=== PATIENT | male | born 1985 | race Hispanic/Latino ===

== ENCOUNTER 2018-09-26 14:45 | Inpatient (IN) | payer SELFPAY ==
[2018-09-26] MEDS ORDERED: Lorazepam 2 MG/ML VIAL ONE ×3 (15:51→21:49)
[2018-09-26] MEDS ORDERED: Multivitamins, Adult 10 ML, Thiamine HCl 100 MG, Folic Acid 1 MG in Dextrose 5 %-0.45 %... IV ONE (16:00)
[2018-09-26] MEDS ORDERED: chlordiazePOXIDE HCl 25 MG CAP ONE (16:17)
[2018-09-26 16:24] LABS: #Eosinphils 0.1 thou/uL (0.0-0.7); #Monocytes 0.6 thou/uL (0.11-0.59); #Neutrophils 13.4 thou/uL (1.40-6.50); %Basophils 0.2 % (0.0-1.0); %Eosinophils 0.5 % (0.0-10.0); %Lymphocytes 12.5 % (21.0-51.0); %Monocytes 3.6 % (0.0-10.0); %Neutrophils 83.1 % (42.0-75.0); Hemoglobin 14.7 g/dL (14.0-18.0); Mean Corpuscular HGB CONC 35.2 g/dL (32.0-36.0); Mean Corpuscular Hemoglobin 30.7 pg (27.0-31.0); Mean Corpuscular Volume 87.3 fL (78.0-98.0); Mean Platelet Volume 8.3 fL (7.4-10.4); Platelet Count 327 thou/uL (130-400); Red Blood Cell (RBC) Count 4.78 mill/uL (4.70-6.10); White Blood Cell (WBC) Count 16.2 thou/uL (4.8-10.8)
[2018-09-26 16:27] LABS: Bilirubin Negative (Negative); Blood, Urine Small (Negative); Clarity CLEAR (Clear); Glucose, Urine (Dipstick) Negative (Negative); Leukocyte Negative (Negative); Nitrite Negative (Negative); Protein, Urine (Dipstick) 100 mg/dL (Neg-Trace); Specific Gravity, Urine 1.013 (1.002-1.036); Urobilinogen 0.2 mg/dL (0.2-1.0); pH, Urine 6.5 (5.0-9.0)
[2018-09-26 16:30] LABS: Bacteria/HPF None Seen HPF (None Seen); Hyaline Casts/LPF 4-6 HYALINE CAST LPF (0-3 Hyaline); Pathc Cast-AUWi Flag 1.01 (0-2.49); RBC/HPF 0-3 HPF (0-3); Squamous Epithelial 0-3 HPF (0-3); WBC/HPF 0-3 HPF (0-3)
[2018-09-26 16:38] LABS: Amphetamine Not Detected (NotDetected); Barbiturates Screen Not Detected (NotDetected); Benzodiazepine Screen Detected (NotDetected); Cocaine Metabolite Screen Not Detected (NotDetected); Medtox Control Line Valid? VALID (VALID); Medtox Reader # READER 4; Methadone Not Detected (NotDetected); Methamphetamine Not Detected (NotDetected); Opiate Screen Not Detected (NotDetected); Oxycodone Screen Not Detected (NotDetected); Phencyclidine (PCP) Not Detected (NotDetected); THC/Cannabinoid Screen Not Detected (NotDetected); Tricyclic Screen Not Detected (NotDetected)
[2018-09-26 16:48] LABS: ALT (SGPT) 35 U/L (8-55); AST (SGOT) 26 U/L (5-34); Albumin 4.4 g/dL (3.5-5.0); Alkaline Phosphatase 85 U/L (40-150); Anion Gap 14 mmol/L (10-20); BUN (Urea Nitrogen) 8 mg/dL (8.9-20.6); Bilirubin, Total 0.4 mg/dL (0.2-1.2); Calc. Creatinine Clearance 0 mL/min (70-130); Calcium 9.6 mg/dL (7.8-10.44); Carbon Dioxide 23 mmol/L (22-29); Chloride 104 mmol/L (98-107); Estimated GFR-MDRD Greater than 90; Globulin 3.7 g/dL (2.4-3.5); Glucose 120 mg/dL (70-105); Magnesium 2.1 mg/dL (1.6-2.6); Potassium 3.9 mmol/L (3.5-5.1); Protein, Total 8.1 g/dL (6.0-8.3); Sodium 137 mmol/L (136-145)
--- NOTE | 2018-09-26 17:36 | CT ---
NONCONTRAST HEAD CT 09/26/18 HISTORY: Seizure-like activity. COMPARISON: None. FINDINGS: No parenchymal hemorrhage. No extra-axial hematoma. No midline shift. Basilar cisterns are patent. b rain volume, age appropriate. Cortical reyez-white matter differentiation is preserved. No evidence of hydrocephalus. Calvarium is intact. Adequate aeration of the mastoid air cells. Partial opacification of the visuali zed left maxillary sinus. IMPRESSION: No acute intracranial process. If this is the patient's first known seizure, nonemergent MRI is recom mended. POS: [facility]
--- NOTE | 2018-09-26 19:52 | PDOC.FPRHP ---
- History of Present Illness Chief Complaint: seizures History of Present Illness: 32 yo M with PMH of seizure 2/2 alcohol withdrawal in 2010 presents for seizure at 2:30 PM today. He reports he was feeling sleepy while watching TV on his bed , and woke up in the ambulance. His brother heard a loud crash and found him on the floor seizing for about 3-4 minutes. He had hit his head on the wall. After the seizure the brother reported he seemed to not be breathing right away and his face turned blue. They sat him up, he began breathing normally, and he was confused for about 20 minutes. He reports biting his tongue, but no incontinence. He was sent via ambulance to the ED. Pt reports drinking about 12 beers daily and 18 beers on weekends plus shots of liquor. Last drink he reports as Aug 25th around 6 PM. He reports smoking a few cigarettes on weekends, but not daily. He denies illicit drug use, but via his chart from 2010 his ex- reported he has a history of using cocaine. He reports having anxiety and using occasional clonazepam. He had been feeling jittery and sweaty over last few days. Denied auditory or visual hallucinations. In the ED, he received ativan and librium, as well as a banana bag. CT head was normal, EKG showed sinus tachycardia up to 130s which improved to 110s with second dose ativan. Otherwise his vitals were stable. - Allergies/Adverse Reactions Allergies Allergy/AdvReac Type Severity Reaction Status Date / Time No Known Allergies Allergy Unverified 09/26/18 15:51 - Home Medications Medication Instructions Recorded Confirmed Type No Known 09/26/18 09/26/18 History - History PMHx: anxiety PSHx: none FHx: DM and HTN in extended family, unknown cancer in aunt, denied fam hx of heart disease Social: See HPI. - Review of Systems General: reports: weight/appetite/sleep changes (30 lbs over past year). denies : fever/chills Eyes: denies: eye pain, vision changes ENT: denies: rhinorrhea Respiratory: reports: shortness of breath (SOB when he exercises, feels that he is out of shape). denies: cough Cardiovascular: denies: chest pain, palpitation, edema Gastrointestinal: denies: nausea, vomiting, diarrhea, constipation, abdominal pain, GI bleeding Genitourinary: denies: dysuria, other (no hematuria) Skin: reports: rashes (on forehead where his head hit the wall/ground). denies : lesions Musculoskeletal: denies: pain, tenderness, stiffness, swelling Neurological: reports: seizure (in 2010). denies: numbness, syncope, weakness Psychological: reports: anxiety. denies: depression - Vital signs BP: [121/73] HR: [113] RR: [20] Tmax: [98.6] Pox: [96]% on [RA] Wt: [91 kg] - Physical Exam Constitutional: NAD, awake, alert and oriented HEENT: PERRLA, EOMI, conjunctiva clear, no scleral icterus, grossly normal hearing, MMM, oropharynx clear, other (Smal hematoma on L forehead, erythematous macular rash over R forehead) Neck: supple, FROM, trachea midline, other (Large neck) Heart: RRR, normal S1/S2 Lungs: CTAB, no respiratory distress, good air movement, no rales/rhonchi, no wheezing Abdomen: soft, non-tender, bowel sounds present, no masses/distention, other ( exam limited by protuberant abdomen) Musculoskeletal: normal structure, normal tone, ROM grossly normal Neurological: no focal deficit, CN II-XII intact, normal sensation, DTRs 2+ Skin: good turgor, capillary refill <2 seconds Heme/Lymphatic: no purpura, no petechia Psychiatric: normal mood and affect, good judgment and insight, intact recent and remote memory FMR H&P: Results - Labs Result Diagrams: 09/27/18 03:26 09/27/18 03:26 Lab results: WBC 16.2 thou/uL (4.8-10.8) H 09/26/18 16:15 Hgb 14.7 g/dL (14.0-18.0) 09/26/18 16:15 Hct 41.8 % (42.0-52.0) L 09/26/18 16:15 MCV 87.3 fL (78.0-98.0) 09/26/18 16:15 Plt Count 327 thou/uL (130-400) 09/26/18 16:15 Neutrophils % 83.1 % (42.0-75.0) H 09/26/18 16:15 Sodium 137 mmol/L (136-145) 09/26/18 16:15 Potassium 3.9 mmol/L (3.5-5.1) 09/26/18 16:15 Chloride 104 mmol/L (98-107) 09/26/18 16:15 Carbon Dioxide 23 mmol/L (22-29) 09/26/18 16:15 BUN 8 mg/dL (8.9-20.6) L 09/26/18 16:15 Creatinine 0.80 mg/dL (0.7-1.3) 09/26/18 16:15 Glucose 120 mg/dL (70-105) H 09/26/18 16:15 Calcium 9.6 mg/dL (7.8-10.44) 09/26/18 16:15 Total Bilirubin 0.4 mg/dL (0.2-1.2) 09/26/18 16:15 AST 26 U/L (5-34) 09/26/18 16:15 ALT 35 U/L (8-55) 09/26/18 16:15 Alkaline Phosphatase 85 U/L (40-150) 09/26/18 16:15 Serum Total Protein 8.1 g/dL (6.0-8.3) 09/26/18 16:15 Albumin 4.4 g/dL (3.5-5.0) 09/26/18 16:15 Urine Ketones Negative mg/dL (Negative) 09/26/18 15:50 Urine Blood Small (Negative) H 09/26/18 15:50 Urine Nitrite Negative (Negative) 09/26/18 15:50 Ur Leukocyte Esterase Negative (Negative) 09/26/18 15:50 Urine RBC 0-3 HPF (0-3) 09/26/18 15:50 Urine WBC 0-3 HPF (0-3) 09/26/18 15:50 Ur Squamous Epith Cells 0-3 HPF (0-3) 09/26/18 15:50 Urine Bacteria None Seen HPF (None Seen) 09/26/18 15:50 - EKG Interpretation EKG: sinus tachycardia - Radiology Interpretation CT scan - head Status: image reviewed by me, report reviewed by me (normal) FMR H&P: A/P - Problem List (1) Seizure due to alcohol withdrawal Current Visit: Yes Status: Acute Code(s): F10.239 - ALCOHOL DEPENDENCE WITH WITHDRAWAL, UNSPECIFIED; R56.9 - UNSPECIFIED CONVULSIONS (2) Alcohol abuse Current Visit: Yes Status: Acute Code(s): F10.10 - ALCOHOL ABUSE, UNCOMPLICATED (3) Alcohol withdrawal Current Visit: Yes Status: Acute Code(s): F10.239 - ALCOHOL DEPENDENCE WITH WITHDRAWAL, UNSPECIFIED (4) Tobacco use Current Visit: Yes Status: Acute Code(s): Z72.0 - TOBACCO USE (5) Anxiety Current Visit: Yes Status: Chronic Code(s): F41.9 - ANXIETY DISORDER, UNSPECIFIED - Plan 32 yo M presents for seizure 2/2 alcohol withdrawal #Seizure 2/2 Alcohol Withdrawal -Hx of previous seizure thought to be 2/2 alcohol withdrawal in 2010 -Seizure today at 2PM, patient reported feeling jittery, anxious, and sweaty over past few days; now is feeling well other than slight headache -Denies auditory/visual hallucinations -Last drink: 6 PM on 09/22/18 -CT head WNL, EKG shows sinus tachycardia -WBC 16, CMP wnl, UDS negative -TSH, mag, and phos pending -AM CBC, BMP penidng -In ED, received ativan, banana bag x1, and librium -Admit to IMCU -Librium q6h -Ativan PRN -Start daily multivitamin, Q24H banana bag -Tylenol for pain -ASE protocol, monitor closely for signs of withdrawal and mental status changes #Hematuria -Small amount of blood on UA, voided specimen -Current smoker -Consider repeat UA #Alcohol Abuse -Consider prescribing librium taper upon discharge after further discussion with patient about risks/benefits #Tobacco Use -reports using a few cigarettes on weekends -Cessation counseling Ppx: Lovenox Diet: Regular Dispo: >2 midnights Code status: Full FMR H&P: Upper Level - Pertinent history 32 yr old male with PMH of alcohol abuse and anxiety who presents to ER after having a seizure at home that lasted around 3-4 minutes, witnessed by his brother. He had no loss of bowel or bladder continence but did bite side of his tongue. States he was lying on his bed but fell to the floor during seizure. Patient does not report a seizure disorder but does have history of seizure around 7 years ago. There is one ER visit in 2010 for seizure after cocaine and Xanax use. He reports heavy alcohol use. Drinks anywhere from 6 -18 beers a day and occasionally a few liquor shots as well. States last drink was on around 6 PM which is approx. 92 hours prior to onset of seizure. Denies hallucinations- tactile, auditory or visual. He reports some tremors and sweating. No fevers. States he was trying to stop drinking this time but usually does not go more than a day without a drink. - Pertinent findings EKG: sinus tachycardia ROS: see above PE: Gen: alert and oriented, no acute distress. Eyes: pupils dilated and reactive to light Heart: RRR, no murmurs, rubs, gallops Lungs: CTAB, no wheeze, rhales, rhonchi Abd: BS normal active, no palpable masses, nontender Ext: no edema bilaterally Neuro: cranial nerves 2-12 intact. No dysdiadichokinesia, normal finger to nose and heel-chandler. - Plan Date/Time: 09/26/181950 I, [Chloe Del Angel], have evaluated this patient and agree with findings/plan as outlined by internet specialist resident. Pertinent changes/additions are listed here. 32 yr old male with seizure Seizure most likely 2/2 alcohol withdrawal -he does have an elevated WBC count however no signs of infection and suspect this is acute leukemoid reaction in response to stress. Will check TSH. Brain CT neg for intracranial process. Neg UDS except benzos which may be from those received in ER. -hx of seizure x 1 thought to be 2/2 alcohol vs Xanax abuse -started on Librium in ER, will continue Librium [id number] and plan to taper -q1hr Ativan available PRN -check mag, phos, TSH -anti-seizure medication not indicated at this time -monitor with seizure precautions -ASE protocol -daily CMP. -recheck CBC in AM for WBC. -start maintenance fluids -daily banana bag Alcohol abuse -cessation counseling provided -discussed importance of not using alcohol while on benzos Anxiety -may be manifest as symptom of his alcohol withdrawals -needs to establish care outpatient -most likely would benefit from SSRI if true anxiety PCP: none Code Status: Full DVT ppx: lovenox Diet: Reg Addendum - Attending - Attending Attestation Date/Time: 09/27/18 1104 I personally evaluated the patient and discussed the management with Dr. Kristal Ortiz I agree with the History, Examination, Assessment and Plan documented above with any addition or exceptions noted below. patient with second episode alcohol related withdrawal seizure.
[2018-09-26] MEDS ORDERED: Acetaminophen 500 MG TAB ONE (21:49)
--- NOTE | 2018-09-26 21:54 | PDOC.EVN ---
Addendum - Attending - Attending Attestation Date/Time: 09/26/182130 I personally evaluated the patient and discussed the management with Dr. Kristal Ortiz I agree with the History, Examination, Assessment and Plan documented as documented by the resident physician. For details please refer to Hx & PE. 32yo male brought in via EMS for seizure activity. Patient with amnesia for the event. Patients brother relates that heard loud bang as patient fell and struck head against wall. Patient was convulsing and brother attempted to manage his airway buy inserting his finger into patients mouth, patient was biting tongue and had emesis x 1. Patient was arousable after about 2 minutes of convulsion post ictal was not coherent. EMS arrived and transported patient to ER. Ativan and Librium administered in ER. [place] had negative CT head and with history of prior heavy drinking with last drink 90 hours before seizure was felt due to alcohol withdrawal. Patient relates a similiar ETOH abstinence seizure 8 years ago. Patient with sweats and tremors last several days. Patient with obesity and body habitus concerning for ALEM he relates a consistent history suggestive for this as well with heavy snoring and daytime somnolence. Patient will be admitted for observation scheduled librium and IV thiamine, B6 and folate. Observation for ETOH withdrawal precautions. Care plan and candid concern for alcohol abuse discussed with patient.
[2018-09-26] MEDS ORDERED: Acetaminophen 325 MG TAB PO PRN (22:37)
[2018-09-26] MEDS ORDERED: Lorazepam 2 MG/ML VIAL SLOW IVP PRN (22:37)
[2018-09-26] MEDS ORDERED: chlordiazePOXIDE HCl 25 MG CAP PO SCH (22:45)
[2018-09-26] MEDS ORDERED: Heparin 5,000 UNITS/ML VIAL SC SCH (22:45)
[2018-09-26 23:24] LABS: Lipase 23 U/L (8-78); Magnesium 1.8 mg/dL (1.6-2.6); Phosphorus 4.1 mg/dL (2.3-4.7)
[2018-09-27 03:34] LABS: #Eosinphils 0.1 thou/uL (0.0-0.7); #Lymphocytes 3.5 thou/uL (1.20-3.40); #Monocytes 0.7 thou/uL (0.11-0.59); #Neutrophils 7.3 thou/uL (1.40-6.50); %Basophils 0.3 % (0.0-1.0); %Lymphocytes 29.7 % (21.0-51.0); %Neutrophils 62.9 % (42.0-75.0); Hemoglobin 13.6 g/dL (14.0-18.0); Mean Corpuscular HGB CONC 35.2 g/dL (32.0-36.0); Mean Corpuscular Hemoglobin 30.9 pg (27.0-31.0); Mean Corpuscular Volume 87.9 fL (78.0-98.0); Mean Platelet Volume 8.2 fL (7.4-10.4); Platelet Count 306 thou/uL (130-400); RBC Distribution Width 12.1 % (11.5-14.5); Red Blood Cell (RBC) Count 4.39 mill/uL (4.70-6.10); White Blood Cell (WBC) Count 11.6 thou/uL (4.8-10.8)
[2018-09-27] MEDS ORDERED: chlordiazePOXIDE HCl 25 MG CAP ONE (03:42)
[2018-09-27 03:53] LABS: ALT (SGPT) 30 U/L (8-55); AST (SGOT) 24 U/L (5-34); Albumin 4.1 g/dL (3.5-5.0); Alkaline Phosphatase 74 U/L (40-150); Anion Gap 14 mmol/L (10-20); BUN (Urea Nitrogen) 9 mg/dL (8.9-20.6); Bilirubin, Total 0.5 mg/dL (0.2-1.2); Calc. Creatinine Clearance 0 mL/min (70-130); Carbon Dioxide 24 mmol/L (22-29); Chloride 103 mmol/L (98-107); Estimated GFR-MDRD Greater than 90; Globulin 3.3 g/dL (2.4-3.5); Glucose 105 mg/dL (70-105); Potassium 3.4 mmol/L (3.5-5.1); Protein, Total 7.4 g/dL (6.0-8.3); Sodium 138 mmol/L (136-145)
[2018-09-27 04:37] LABS: HBSAg Index 0.25 S/CO (0-0.99); HIV (1/2) Antibody/Antigen Non-Reactive (NonReactive); Hep B Surf Ag Non-Reactive S/CO (NonReactive); Hep C IgG Ab Non-Reactive (NonReactive); Hep C Index 0.09 S/CO (0-0.79)
[2018-09-27 05:17] LABS: Syphilis Antibody Nonreactive (Nonreactive); Syphilis Antibody Index 0.03 S/CO (<1.00 Non-Reactive)
[2018-09-27 05:19] VITALS: BMI 45.0
[2018-09-27] MEDS: Sodium Chloride 0.9% 1,000 ML IV SCH ×3 (05:45→14:46)
--- NOTE | 2018-09-27 07:23 | PDOC.FM ---
- Subjective Subjective: No acute events overnight. Denies seizures, tremors,palpitations. Strong interest to quit alcohol use. Confirms last drink as 09/22 around 1800 - Objective MAR Reviewed: Yes Vital Signs & Weight: Vital Signs (12 hours) Temp Pulse Resp BP Pulse Ox 09/27/18 05:14 97.3 F L 83 18 115/64 95 09/27/18 04:00 95 Weight Weight 126.552 kg Result Diagrams: 09/27/18 03:26 09/27/18 03:26 Phys Exam - Physical Examination Constitutional: NAD HEENT: PERRLA, moist MMs, sclera anicteric mild horizontal nystagmus with finger follow test Neck: full ROM Respiratory: no wheezing, clear to auscultation bilateral Cardiovascular: RRR, no significant murmur Gastrointestinal: soft, non-tender Musculoskeletal: no edema Neurological: non-focal, moves all 4 limbs Lymphatic: no nodes Psychiatric: normal affect, A&O x 3 Deviation from normal: no tremors Dx/Plan (1) Alcohol abuse Code(s): F10.10 - ALCOHOL ABUSE, UNCOMPLICATED Status: Acute (2) Seizure due to alcohol withdrawal Code(s): F10.239 - ALCOHOL DEPENDENCE WITH WITHDRAWAL, UNSPECIFIED; R56.9 - UNSPECIFIED CONVULSIONS Status: Acute (3) Tobacco use Code(s): Z72.0 - TOBACCO USE Status: Acute (4) Anxiety Code(s): F41.9 - ANXIETY DISORDER, UNSPECIFIED Status: Chronic - Plan Plan: 32 yo M presents for alcohol with Alcohol withdrawal seizure -Hx of previous seizure thought to be 2/2 alcohol withdrawal in 2010 -Last drink: 6 PM on 09/22/18 -AVSS, no other signs of withdrawal at this time -WBC 16-> 11, likely stress reaction -In ED, received ativan, banana bag x1, and librium -Librium q6h, Ativan PRN, banana bag daily, multivitamin, ASE protocol -Tylenol for pain Hematuria -Repeat UA -H/H stable Hypokalemia -Will replace Alcohol Abuse -Consider prescribing librium taper upon discharge after further discussion with patient about risks/benefits Tobacco Use -intermittent smoker -counseled on cessation Ppx: Lovenox Diet: Regular Dispo: >2 midnights Code status: Full Discussed with Dr. Laureano Addendum - Attending - Attending Attestation Date/Time: 09/27/18 5422 I personally evaluated the patient and discussed the management with Dr. Weaver I agree with the History, Examination, Assessment and Plan documented above with any addition or exceptions noted below.Patient stable home librium taper and resources for alcohol recovery and continued abstinence. Discussed outpatient evaluation for ALEM with patient.
[2018-09-27] MEDS ORDERED: Heparin 5,000 UNITS/ML VIAL SC SCH (09:00)
[2018-09-27] MEDS: Potassium Chloride 20 MEQ TAB PO SCH (09:03)
[2018-09-27] MEDS: chlordiazePOXIDE HCl 25 MG CAP PO SCH ×4 (09:03→20:15)
[2018-09-27] MEDS: Enoxaparin Sodium 40 MG/0.4 ML SYRINGE SC SCH (10:27)
[2018-09-27 13:50] LABS: Bilirubin Negative (Negative); Blood, Urine Small (Negative); Clarity CLEAR (Clear); Glucose, Urine (Dipstick) Negative (Negative); Leukocyte Negative (Negative); Nitrite Negative (Negative); Protein, Urine (Dipstick) 100 mg/dL (Neg-Trace); Specific Gravity, Urine 1.023 (1.002-1.036); Urobilinogen 0.2 mg/dL (0.2-1.0); pH, Urine 5.5 (5.0-9.0)
[2018-09-27 13:52] LABS: Bacteria/HPF None Seen HPF (None Seen); Hyaline Casts/LPF 0-3 HYALINE CAST LPF (0-3 Hyaline); Pathc Cast-AUWi Flag 0.43 (0-2.49); RBC/HPF 0-3 HPF (0-3); Squamous Epithelial 0-3 HPF (0-3); WBC/HPF 0-3 HPF (0-3)
[2018-09-27] MEDS: Multivitamins, Adult 10 ML, Folic Acid 1 MG, Thiamine HCl 100 MG in Dextrose 5 %-0.45 %... IV SCH ×2 (14:46→16:45)
[2018-09-27] MEDS: Lactated Ringer's 1,000 ML IV SCH (16:45)
[2018-09-28] MEDS: Lactated Ringer's 1,000 ML IV SCH ×3 (00:50→08:13)
--- NOTE | 2018-09-28 06:31 | PDOC.FM ---
- Objective Vital Signs & Weight: Vital Signs (12 hours) Temp Pulse Resp BP BP Pulse Ox 09/28/18 00:00 97.8 F 82 16 121/72 95 09/27/18 20:00 132/78 97 09/27/18 19:15 98.2 F 88 16 132/78 97 Weight Weight 126.552 kg I&O: 09/26/18 09/27/18 09/28/18 06:59 06:59 06:59 Intake Total 3540 Output Total 550 Balance 2990 Result Diagrams: 09/27/18 03:26 09/27/18 03:26 Dx/Plan (1) Alcohol abuse Code(s): F10.10 - ALCOHOL ABUSE, UNCOMPLICATED Status: Acute (2) Seizure due to alcohol withdrawal Code(s): F10.239 - ALCOHOL DEPENDENCE WITH WITHDRAWAL, UNSPECIFIED; R56.9 - UNSPECIFIED CONVULSIONS Status: Acute (3) Tobacco use Code(s): Z72.0 - TOBACCO USE Status: Acute (4) Anxiety Code(s): F41.9 - ANXIETY DISORDER, UNSPECIFIED Status: Chronic - Plan Plan: 32 yo M presents for alcohol with Alcohol withdrawal seizure -Last drink: 6 PM on 09/22/18 -AVSS, no other signs of withdrawal at this time -WBC 16-> 11, likely stress reaction -Continuing daily banana bag, multivitamin, ASE protocol -Dec librium taper to TID -Tylenol for pain Rhabdomyolysis -CPK 725 -LR fluids at 150cc -Pending AM CPK/CMP Hypokalemia, resolved Alcohol Abuse -Consider prescribing librium taper upon discharge after further discussion with patient about risks/benefits -Provided handouts on AA meeting times, resources Tobacco Use -intermittent smoker -counseled on cessation Ppx: Lovenox Diet: Regular Dispo: >2 midnights Code status: Full Discussed with Dr. Laureano
--- NOTE | 2018-09-28 06:31 | PDOC.FM ---
- Subjective Subjective: NAEO. Denies seizures, tremors, hallucination. No hematuria. - Objective MAR Reviewed: Yes Vital Signs & Weight: Vital Signs (12 hours) Temp Pulse Resp BP BP Pulse Ox 09/28/18 00:00 97.8 F 82 16 121/72 95 09/27/18 20:00 132/78 97 09/27/18 19:15 98.2 F 88 16 132/78 97 Weight Weight 126.552 kg I&O: 09/26/18 09/27/18 09/28/18 06:59 06:59 06:59 Intake Total 3540 Output Total 550 Balance 2990 Result Diagrams: 09/28/18 06:18 09/28/18 06:18 Phys Exam - Physical Examination Constitutional: NAD HEENT: moist MMs acanthosis nigricans Cardiovascular: RRR, no significant murmur Lymphatic: no nodes Psychiatric: normal affect, A&O x 3 Deviation from normal: no trmeors Dx/Plan (1) Rhabdomyolysis Code(s): M62.82 - RHABDOMYOLYSIS Status: Acute (2) Alcohol abuse Code(s): F10.10 - ALCOHOL ABUSE, UNCOMPLICATED Status: Acute (3) Seizure due to alcohol withdrawal Code(s): F10.239 - ALCOHOL DEPENDENCE WITH WITHDRAWAL, UNSPECIFIED; R56.9 - UNSPECIFIED CONVULSIONS Status: Resolved (4) Tobacco use Code(s): Z72.0 - TOBACCO USE Status: Acute (5) Anxiety Code(s): F41.9 - ANXIETY DISORDER, UNSPECIFIED Status: Chronic - Plan Plan: 32 yo M presents for alcohol with Alcohol withdrawal seizure -Last drink: 6 PM on 09/22/18 -AVSS, no other signs of withdrawal at this time -Continue daily banana bag, multivitamin, ASE protocol, ativan PRN -Dec librium taper to TID -Tylenol for pain Rhabdomyolysis -CPK 725 -> 463 -No MELIZA -Inc LR fluids to 170cc Hypokalemia, resolved Alcohol Abuse -Consider prescribing librium taper upon discharge after further discussion with patient about risks/benefits -Provided handouts on AA meeting place/times, further resources & support group information Tobacco Use -intermittent smoker -counseled on cessation Ppx: Lovenox Diet: Regular Dispo: >2 midnights Code status: Full Dispo: Continue to monitor, possible d/c today or tmrw AM Discussed with Dr. Laureano Addendum - Attending - Attending Attestation Date/Time: 09/28/18 1211 I personally evaluated the patient and discussed the management with Dr. Weaver I agree with the History, Examination, Assessment and Plan documented above with any addition or exceptions noted below. Patient good to go today counseled patient and family extensively.
[2018-09-28 06:55] LABS: #Eosinphils 0.2 thou/uL (0.0-0.7); #Lymphocytes 2.9 thou/uL (1.20-3.40); #Monocytes 0.6 thou/uL (0.11-0.59); #Neutrophils 5.3 thou/uL (1.40-6.50); %Basophils 0.3 % (0.0-1.0); %Eosinophils 2.5 % (0.0-10.0); %Lymphocytes 31.6 % (21.0-51.0); %Monocytes 6.6 % (0.0-10.0); Hemoglobin 12.9 g/dL (14.0-18.0); Mean Corpuscular HGB CONC 34.3 g/dL (32.0-36.0); Mean Corpuscular Hemoglobin 30.7 pg (27.0-31.0); Mean Corpuscular Volume 89.2 fL (78.0-98.0); Mean Platelet Volume 8.3 fL (7.4-10.4); Platelet Count 264 thou/uL (130-400); RBC Distribution Width 12.2 % (11.5-14.5)
[2018-09-28 07:28] LABS: ALT (SGPT) 28 U/L (8-55); AST (SGOT) 22 U/L (5-34); Albumin 3.6 g/dL (3.5-5.0); Alkaline Phosphatase 67 U/L (40-150); Anion Gap 12 mmol/L (10-20); BUN (Urea Nitrogen) 7 mg/dL (8.9-20.6); Bilirubin, Total 0.4 mg/dL (0.2-1.2); CK (CPK) 463 U/L (30-200); Calc. Creatinine Clearance 281 mL/min (70-130); Calcium 8.4 mg/dL (7.8-10.44); Carbon Dioxide 24 mmol/L (22-29); Chloride 108 mmol/L (98-107); Estimated GFR-MDRD Greater than 90; Globulin 2.8 g/dL (2.4-3.5); Glucose 108 mg/dL (70-105); Potassium 3.8 mmol/L (3.5-5.1); Protein, Total 6.4 g/dL (6.0-8.3); Sodium 140 mmol/L (136-145)
[2018-09-28] MEDS: Enoxaparin Sodium 40 MG/0.4 ML SYRINGE SC SCH (08:12)
[2018-09-28] MEDS: chlordiazePOXIDE HCl 25 MG CAP PO SCH ×2 (08:12→12:16)
[2018-09-28] MEDS: Potassium Chloride 20 MEQ TAB PO SCH (08:12)
[2018-09-28] MEDS ORDERED: Lactated Ringer's 1,000 ML IV SCH (08:21)
[2018-09-28] MEDS ORDERED: Indapamide 1.25 MG TAB PO SCH (09:00)
[2018-09-28 09:16] LABS: Hemoglobin A1c 5.6 % (4.0-6.0)
[2018-09-28 11:42] VITALS: BP 135/81; TEMP 98
--- NOTE | 2018-09-29 04:17 | DIS ---
DATE OF ADMISSION: 09/26/2018 DATE OF DISCHARGE: 09/28/2018 RESIDENT: María Elena Weaver MD, PGY-1. ADMITTING ATTENDING: Amanuel Laureano MD DISCHARGE ATTENDING: Amanuel Laureano MD CONSULT: None. PROCEDURES: None. PRIMARY DIAGNOSES: 1. Alcohol withdrawal seizure. 2. Elevated CPK. SECONDARY DIAGNOSES: 1. Anxiety. 2. Alcohol abuse. 3. Tobacco abuse. 4. History of seizure secondary to alcohol withdrawal. DISCHARGE MEDICATIONS: 1. Librium 50 mg p.o. t.i.d. Next day 50 mg p.o. b.i.d. Next day 50 mg p.o. daily. 2. Multivitamin. 3. B1 100 mg p.o. daily. HISTORY OF PRESENT ILLNESS/HOSPITAL COURSE: A 32-year-old with history of alcohol abuse, presented to the ED status post witnessed seizure. Reported his last drink on 08/23 around 6:00 p.m. and seizure onset was about 90 hours after his last drink. In the ED, the patient was stabilized and did not require intubation. Lab work was consistent with seizure with elevated prolactin. Blood alcohol level was less than 10. Typically, the patient drinks 12 beers daily and 18 beers on the weekend including shots of liquor. This has happened prior 7 years ago in 2010, where he also reported seizure, requiring hospitalization secondary to alcohol withdrawal. However, there is concern that because he was concurrently using cocaine and could have been induced by drug abuse as well. He reports having anxiety and occasionally using clonazepam. There is no concern for benzo abuse. The patient reported prior to seizure, he had been feeling jittery and sweaty over the last few days, but did not have any auditory or visual hallucinations. In the ED, he received Ativan and was started on the Librium taper as well as banana bag with fluids. He did exhibit sinus tachycardia, which resolved the same day. CT of head was within normal limits in addition to no other concerning changes on EKG aside from sinus tachycardia. The patient continued receiving supportive care and did not experience any further alcohol withdrawal seizures in the hospital. Multiple discussions and family interventions were had with him in regard to alcohol cessation. The patient was very open to this and after provider discussion in addition to family discussion, he expressed verbal consent of wanting to receive further help and support. Documents were provided for Alcohol Anonymous with meeting times and further resource availability. In addition, labs were significant for urinalysis showing small blood and proteinuria with no rbc's. The patient had an elevated CPK of 726 and was subsequently started on fluids. His renal function remained within normal limits. The patient's CPK dropped the next day to 400s with resolution of dark urine and hematuria. No other significant events occurred while in hospital. The patient was also instructed to continue the Librium taper for a total duration of 4 days. He was also instructed to adequately hydrate via p.o. intake of water in order to make sure that the elevated CPK resolved itself. He was given warning signs. Should he experience lower flank pain or hematuria, to come back to the hospital. DISPOSITION: Stable. DISCHARGE INSTRUCTIONS: 1. Location: Home. 2. Diet: Heart healthy diet. 3. Activity: Ad gracie. 4. Followup: Please follow up with PCP, Dr. María Elena Weaver, and [facility] within the week. Job ID: [id number]
== END 2018-09-28 12:39 | disposition home or self-care (01) | DRG 897 ==
LOC: ERS 14:45 → ERHOLD 19:54 → 2NO 09-27 04:47 → T4-A 09-27 20:10
PROVIDERS: ADMIT Family Medicine; ATTEND Family Medicine
DX: F10.239 Alcohol dependence with withdrawal, unspecified (principal); M62.82 Rhabdomyolysis; F17.210 Nicotine dependence, cigarettes, uncomplicated; F41.9 Anxiety disorder, unspecified; R56.9 Unspecified convulsions; R31.9 Hematuria, unspecified; E87.6 Hypokalemia
CPT/HCPCS: 36415; 70450; 80053; 80306; 80307; 81001; 81003; 81015; 82550; 83036; 83690; 83735; 84100; 84443; 85025; 86780; 86803; 87340; 87389; 93005; 94760; J1644; J1650; J2060; J3411; J7042